=== PATIENT | female | born 1950 | race Caucasian/White ===

== ENCOUNTER → 2017-04-10 | Outpatient (CLI) | payer OTHER ==
[~2017-04-10] MED LIST: ANTIVERT25 MG PO
== END ==
LOC: RAD 14:29
DX: Z12.31 Encounter for screening mammogram for malignant neoplasm of breast (principal)

== ENCOUNTER → 2017-11-14 | Outpatient (CLI) | payer OTHER ==
[~2017-11-14] VITALS: Ht 167.6 cm; Wt 104.3 kg
[~2017-11-14] MED LIST changes: +IBUPROFEN 200200 M1 PO; +NORVASC10 MG PO
--- NOTE | ~2017-11-14 | PATH ---
[facility] [place] [address] PATHOLOGY RPT PROCEDURE Name: CORNELIOPABLO Room #: REG JOSE RAFAEL Carrillo#: [id number] Admission: 11/14/17 Date of : 54 Discharge: Report #: [id number] Path Case #: [id number] L[facility] Accession Number: [id number] . 01 Material submitted: . PART A: CECAL POLYP PART B: DESCENDING COLON POLYP PART C: RECAL POLYP X3 . 01 Clinical history: . Pre-OP DX: Screening Post-OP DX: Colon polyps . 02 Diagnosis: A. "Cecal polyp", biopsy: - Tubular adenoma; no high-grade dysplasia. . B. "Descending colon polyp", biopsy: - Tubular adenoma; no high-grade dysplasia. . C. "Rectal polyp x 3", biopsy: - Tubular adenoma; no high-grade dysplasia. - Hyperplastic polyp. (CLW:joe; 11/17/2017) QMS/11/17/2017 . 02 Electronically signed: . Chel Sheriff MD, Pathologist NPI- [id number] . 01 Gross description: . A. Received in formalin labeled "Pablo Mckinley cecal polyp," are multiple segments of jhaveri soft tissue measuring 1.5 x 0.9 x 0.4 cm in aggregate dimensions. The specimen is filtered and submitted entirely in cassette A1. . B. Received in formalin labeled "Pablo Mckinley, descending colon polyp," is a single segment of jhaveri soft tissue measuring 0.5 cm in maximum dimension. The specimen is entirely submitted in cassette B1. . C. Received in formalin labeled "Pablo Mckinley, rectal polyp x3," is a 1.1 x 0.6 x 0.8 cm polypoid piece of jhaveri soft tissue. The presumed margin is inked and the specimen is sectioned perpendicular to the margin and entirely submitted in cassette C1. Additionally received in the same container are 2 segments of jhaveri soft tissue measuring 0.5 x 0.3 x 0.2 cm in aggregate dimensions and ranging from 0.2 to 0.3 cm in maximum dimension. The specimen is submitted entirely [place] [id number] PATHOLOGY RPT PROCEDURE Name: PABLO MCKINLEY [facility] [id number] Admission: 11/14/17 Date of : 54 Discharge: Report #: [id number] Path Case #: [id number] (TSD; 11/14/2017) TOB/TOB . 02 Pathologist provided ICD-10: D12.0, D12.4, D12.8 . 02 CPT . 916074, 711464, 169612 Performed at: [address], [place] [id number] MD Raj Sood MD Phone: [phone] Performed at: [address] [id number] MD Amber Wallis MD Phone: [phone]
--- NOTE | ~2017-11-14 | P ---
[facility] [place] [place] [address] PROCEDURE REPORT Name: PABLO GRIMES Room #: REG [facility]#: [id number] Admission: 11/14/17 Attend Phys: Scott Raines Discharge: Date of : 54 Report #: [id number] THIS REPORT FOR: //name// CC: Scott Rodriguez Teetee Buchanan ACCOUNTS PAYABLE LEAD DATE OF SERVICE: 11/14/2017 PROCEDURE PERFORMED: Colonoscopy with polypectomies. HISTORY OF PRESENT ILLNESS: The patient is a 67-year-old female who presents today for routine screening colonoscopy. Denies any symptoms. No family history of colon cancer. DESCRIPTION OF PROCEDURE: The risks and benefits of the procedure were explained to the patient, those risks including but not limited to bleeding, perforation, the risk of sedation. She understood these risks and gave informed consent. Sedation was given using propofol per Anesthesia. Next, a digital rectal exam was initially performed and showed small external hemorrhoids, otherwise normal. Next, using a standard Olympus colonoscope, the scope was placed in the patient's anus and advanced under direct vision to the cecum. The overall prep was excellent. In the cecum, there was an 8 mm partially pedunculated polyp. This was removed by snare cautery, otherwise normal. The ileocecal valve was normal. Ascending and transverse colon were normal. In the descending colon, another 6 mm polyp was noted, also removed by snare cautery. Sigmoid colon was normal. In the rectum, there were 3 polyps, two 4 mm sessile polyps and 1 cm partially pedunculated polyp. All were removed by snare cautery. On retroflexion, no abnormalities were noted. The scope was then withdrawn and the procedure terminated. The patient tolerated the procedure well. IMPRESSION: 1. Multiple colonic polyps as described above. 2. External hemorrhoids. 3. Otherwise, normal colonoscopy. RECOMMENDATIONS: 1. Await biopsy results. 2. Repeat colonoscopy in 5 years. [facility] [address] [place] [address] PROCEDURE REPORT Name: PABLO GRIMES Ayaz Room #: [facility]#: [id number] Admission: 11/14/17 Attend Phys: Scott Raines Discharge: Date of : 54 Report #: [id number] Thank you for allowing me to participate in her care. By: [id number] Scott Rodriguez MD /jackie
== END | disposition home or self-care (01) ==
LOC: GI 06:57
DX: Z12.11 Encounter for screening for malignant neoplasm of colon (principal); D12.0 Benign neoplasm of cecum; D12.4 Benign neoplasm of descending colon; D12.8 Benign neoplasm of rectum; K63.5 Polyp of colon; K64.4 Residual hemorrhoidal skin tags; I10 Essential (primary) hypertension; Z98.890 Other specified postprocedural states; Z90.49 Acquired absence of other specified parts of digestive tract; Z90.710 Acquired absence of both cervix and uterus; Z79.899 Other long term (current) drug therapy
CPT/HCPCS: 62110; 62900

== ENCOUNTER → 2018-09-03 | Outpatient (CLI) | payer OTHER | LOC: RAD 14:48 | DX: Z12.31 Encounter for screening mammogram for malignant neoplasm of breast (principal) ==

== ENCOUNTER → 2019-10-26 | Outpatient (CLI) | payer OTHER | LOC: RAD 14:09 | PROVIDERS: ATTEND Nurse Practitioner | DX: Z12.31 Encounter for screening mammogram for malignant neoplasm of breast (principal) ==

== ENCOUNTER → 2019-11-24 | Outpatient (CLI) | payer OTHER ==
[~2019-11-24] MED LIST changes: +HYDROCHLOROTHIA25 M2 PO
== END ==
LOC: LAB 10:01
PROVIDERS: ATTEND Student in an Organized Health Care Education/Training Program
DX: Z01.812 Encounter for preprocedural laboratory examination (principal); Z11.59 Encounter for screening for other viral diseases

== ENCOUNTER 2019-11-29 06:28 | Day surgery (SDC) | payer OTHER ==
[2019-11-22 13:17] LABS: HEMATOCRIT 40.7 % (37.0-47.0); MCH 31.3 pg (26.0-34.0); MCHC 34.3 g/dL (28.0-37.0); MCV 91.2 fL (80.0-100.0); RBC 4.46 mil/uL (4.20-5.00); RDW 13.7 % (10.5-14.5)
--- NOTE | 2019-11-22 13:26 | EKG ---
[facility] [place] [address] [address] ELECTROCARDIOGRAM REPORT Name: PABLO GRIMES Room #: [facility]..#: [id number] Admission: Attend Phys: Ollie Childs MD Discharge: Date of : 54 Report #: [id number] THIS REPORT FOR: cc: Teetee Buchanan DNP, Mary E. DNP Couchonnal, Luis F. MD ~ THIS REPORT FOR: //name// [facility] Test Date: 2019-11-22 Test Time: 13:04:38 Pat Name: PABLO GRIMES Department: Room: Gender: Wildlife Conservationist: Ayaz DOBSON : 1950 Requested By: Ollie Childs Order Number: [id number] MD: Mike Dowling Measurements Intervals [place] Rate: 62 P: 43 VA: 144 QRS: 22 QRSD: 96 T: 3 QT: 400 QTc: 407 Interpretive Statements Sinus rhythm Compared to ECG 02/20/2015 10:49:44 No significant changes Electronically Signed On 11-22-2019 13:25:58 CDT by Mike Dowling [email or web address] <ELECTRONICALLY SIGNED> By: Mike Dowling MD 11/22/19 1325 1304 1304 Mike Dowling MD /[facility]
[2019-11-22 13:28] LABS: URINE BILIRUBIN NEGATIVE (Negative); URINE BLOOD NEGATIVE (Negative); URINE CLARITY CLEAR; URINE COLOR YELLOW; URINE GLUCOSE-RANDOM* NEGATIVE (Negative); URINE KETONES NEGATIVE (Negative); URINE NITRITE-REFLEX NEGATIVE (Negative); URINE PROTEIN (DIPSTICK) NEGATIVE (Negative); URINE SPECIFIC GRAVITY 1.015 (1.005-1.035); URINE UROBILINOGEN 0.2 E.U./dl (0.2-1.0)
[2019-11-22 13:31] LABS: URINE LEUKOCYTES-REFLEX 1+ (Negative)
[2019-11-22 13:38] LABS: ALBUMIN 3.9 g/dL (3.4-5.0); CALCIUM 9.3 mg/dL (8.5-10.1); CREATININE 0.7 mg/dL (0.6-1.0); POTASSIUM 3.2 mmol/L (3.5-5.1)
[2019-11-22 13:41] LABS: SQUAMOUS 4-10 Moderate /LPF (0-3); URINE RBC None Seen /HPF (0-2); URINE WBC-REFLEX 0-5 Rare /HPF (0-5)
[2019-11-22 13:42] LABS: CASTS None Seen /LPF (None Seen); CRYSTALS None Seen /LPF (None Seen)
[2019-11-22 13:50] LABS: PROTIME 9.7 Seconds (9.3-11.4)
[2019-11-29] VITALS (7 sets, daily range): BP systolic 117–133; BP diastolic 68–76
[~2019-11-29] VITALS: Ht 170.2 cm; Wt 103.9 kg
--- NOTE | 2019-11-29 15:51 | NUR ---
PATIENT ARRIVED TO UNIT APPROX 12:51. PT AOX4. POLAR PACK IN PLACE. DENIES PAIN. REPORTS SOME PRESSURE TO LEFT KNEE. PT WORKED WITH PT. PT STATING THAT SHE IS GOING HOME TODAY. IVF IN PLACE. VSS. FALL PRECAUTIONS IN PLACE.
--- NOTE | 2019-11-29 16:41 | NUR ---
ASSESSMENT: CM REVIEWED CHART AND MET WITH PATIENT AT THE BEDSIDE. PT IS A TOTAL KNEE. PT REPORTS LIVING IN A HOUSE ALONE. PT REPORTS 1-2 STEPS TO ENTER WITH A POST SHE CAN HOLD ON TO. PT REPORTS ONCE INSIDE HER NEEDS ARE ON ONE LEVEL EXCEPT LAUNDRY IS IN THE BASEMENT. PT REPORTS HAVING ENOUGH CLOTHES WHERE SHE WONT HAVE TO DO LAUNDRY FOR A WHILE. PT REPORTS ABOUT 14 STEPS WITH HANDRAILS TO THE BASEMENT. PT REPORTS NEVER HAVING HH. PT STATES SHE HAS A WALKER AND A CANE AT HOME. PT REPORTS SHE HAS OUTPATIENT THERAPY SCHEDULED AT [facility] IN [place]. PT REPORTS WANTING TO GO HOME. PT REPORTS NO FURTHER NEEDS FROM CM PRIOR TO DISCHARGE.
--- NOTE | 2019-11-30 03:42 | NUR ---
PT OBSERVED SITTING UP IN THE RECLINER IN HER ROOM AT START OF SHIFT.PT DENIED PAIN STATED THAT SHE FEEL JUST PRESSURE TO HER KNEE.PT UP WITH ASSIST X1/GAIT BELT AND WALKER TO THE BATHROOM,GOOD ENDURANCE NOTED.SCD AND RADHA HOSE IN PLACE.DRSG C/D/I WITH POLAR PACK.PT VOICED CONCERN ABOUT THERAPY SET UP AT DC,SHE WAS INFORMED THAT THE CASE MGT WILL LOOK INTO IT IN THE AM.PT PROGRESSING WELL TOWARDS DC GOALS.FALL PRECAUTIONS IN PLACE,CALL LIGHT WITHIN REACH.
[2019-11-30 05:59] LABS: HEMATOCRIT 34.1 % (37.0-47.0); HEMOGLOBIN 11.5 gm/dL (12.0-15.0); MCH 30.9 pg (26.0-34.0); MCHC 33.6 g/dL (28.0-37.0); RBC 3.7 mil/uL (4.20-5.00); RDW 14.1 % (10.5-14.5); WBC 12.7 thou/uL (4.0-11.0)
[2019-11-30 08:03] VITALS: BP 128/68
[2019-11-30 11:30] VITALS: BP 128/68
--- NOTE | 2019-11-30 13:15 | NUR ---
PT ASSESSED AT START OF SHIFT. PT PROGRESSING WELL W/ THERAPY. MINIMAL PAIN -MEDS HELPING. PLANNING ON THERAPY OUTPT AT [facility] NEAR HER HOME. DC'D PER W/C TO HOME W/ DAUGHTER THERE TO HELP.
--- NOTE | 2019-11-30 16:27 | NUR ---
CM MET WITH PATIENT SHE STATES HER OUTPATIENT THERAPY HAS NOT HEARD BACK FROM HER INSURANCE FAR APPROVING THEM FOR OUTPATIENT REHAB. CM ATTEMPTED TO ASSIST PATIENT AND CALLED THE NUMBER ON HER BACK OF INSURANCE CARD [phone] IN ATTEMPTS TO GET MORE INFO. THEY STATE THAT PT NEEDS TO GO TO A PRIME FACILITY TO BE IN TIER ONE. PT REPORTS SHE WANTS TO GO SOMEWHERE CLOSE TO HER HOME THAT HER DAUGHTER GOES TO ([facility]) WHICH IS CONSIDERED TIER 2 AND SHE WILL HAVE A COPAY. PT REPORTS SHE KNOWS AND IS AGREEABLE WITH THIS BUT STATES THAT [facility] IS WAITING TO HEAR BACK FROM INSURANCE. CM SPOKE WITH [facility] WHO REPORTS THEY ARE AWAITING CALL BACK FROM INSURANCE AND INSURANCE STATES SOMETIMES IT TAKES 5-10 DAYS TO APPROVE. CM PROVIDED PATIENT AND [facility] WITH THE NUMBER TO CONSTACT THE INSURANCE COMPANY AND THEIR FAX.
--- NOTE | 2019-12-03 09:08 | O ---
[facility] [place] [address] OPERATIVE REPORT Name: PABLO GRIMES Room #: [facility]#: [id number] Admission: 11/29/19 Attend Phys: Ollie Childs MD Discharge: 11/30/19 Date of : 54 Report #: [id number] THIS REPORT FOR: cc: Teetee Buchanan DNP, Mary E. DNP Abraham, Scott M. MD ~ CC: Veronica Childs DATE OF SERVICE: 11/29/2019 PREOPERATIVE DIAGNOSIS: Left knee osteoarthritis. POSTOPERATIVE DIAGNOSIS: Left knee osteoarthritis. PROCEDURE: Left total knee arthroplasty using Navio robotic assistance. SURGEON: Ollie Childs MD [employer]: Sharron Barajas PA-C. INDICATIONS FOR [employer]: Throughout the case, extensive retraction and manipulation of knee was required. This was afforded to me by my child care center assistant director. ANESTHESIA: LMA with an adductor canal block. IMPLANTS: Include size 6 Journey II BCS cobalt chrome femur, a size 5 tibia, size 11 constrained polyethylene and size 32 patella. TOURNIQUET TIME: 57 minutes. ESTIMATED BLOOD LOSS: 25 mL. COMPLICATIONS: None. SPECIMENS: None. CONDITION UPON LEAVING THE OPERATING ROOM: Stable. INDICATIONS FOR PROCEDURE: The patient is a 69-year-old female with severe left knee osteoarthritis who failed conservative measures for this and after discussion with her, she elected for left total knee arthroplasty. DESCRIPTION OF PROCEDURE: Risks, benefits, alternatives, complications were discussed in detail with the patient including but not limited to risk of [facility] [address] [place] [address] OPERATIVE REPORT Name: PABLO GRIMES Room #: [facility]P [facility]..#: [id number] Admission: 11/29/19 Attend Phys: Ollie Childs MD Discharge: 11/30/19 Date of : 54 Report #: [id number] anesthesia, risk of damage to nerves, arteries, blood vessels, risk for infection, bleeding, risk for continued knee pain, need for reoperation. Informed consent was obtained from the patient. Left knee was prepped with marked in the preoperative holding area. Adductor canal block was placed by Anesthesia. IV Ancef was given for preoperative antibiotics. She was brought to the operating room and placed in the supine position on the operating room table. LMA anesthesia was induced without complication. Tourniquet was placed on the left thigh. Left lower extremity was prepped and draped in normal sterile fashion. Timeout was performed properly identifying the patient and procedure as well as the instrumentation and implants. All in the operating room were in agreement. Left lower extremity was exsanguinated. Tourniquet inflated. Tourniquet time was 57 minutes. Standard midline approach to knee was made with 10 blade through the skin. Dissection was taken down sharply to the fascia and flaps were developed medially and laterally. Fresh 10 blade was used to make a medial parapatellar arthrotomy and the knee was inspected. There was severe tricompartmental osteoarthritis. ACL and PCL were removed sharply. Reference pins were placed in the femur and the tibia and the knee was digitally mapped using the [employer] robotic system and sized the size 6 femur, size 5 tibia and a size 10 spacer. After acceptance of the intraoperative plan, the distal femoral cut was made with Navio bur. The distal femoral cutting block was pinned in place and distal femoral cuts were made. Attention was turned to the tibia. Remainder of the menisci were removed with Bovie cautery. Tibial resection guide was pinned in place using the Navio for placement and tibial resection was made. Flexion and extension gaps were then checked and found to have good balance in flexion and extension both medially and laterally. The tibia was sized, found to be a size 5. A size 5 tibial trial was placed, pinned and punched. A size 6 femoral trial was placed and box cut was made. This was trialed with a size 10 and then a size 11 polyethylene demonstrated good balance laterally throughout range of motion. It was about 4 millimeter of laxity medially and we felt we could make up for this with the final implant. A 9 mm was then resected from the posterior surface of the patella and a size 32 patellar trial button was placed. Knee was taken through range of motion, found to be stable, found to have good patellar tracking. Trial components were removed. Bony ends were thoroughly irrigated with normal saline. A final size 5 tibia, size 6 Journey II BCS cobalt chrome femur and a size 32 patella were cemented in place using standard cementation techniques. While the cement cured, a periarticular injection consisting of morphine, ropivacaine, epinephrine and Toradol was placed around the knee joint capsule. After the cement cured, tourniquet was deflated. Hemostasis was obtained with Bovie cautery. Final size 11 constrained polyethylene was placed. A gram of vancomycin was placed deep in the joint. Fascia was closed with 0 Vicryl, skin was closed with 2-0 Vicryl, skin staple and a JANINA dressing was applied. The [address] [address] OPERATIVE REPORT Name: PABLO GRIMES Room #: DEP [facility] Lorena#: [id number] Admission: 11/29/19 Attend Phys: Ollie Childs MD Discharge: 11/30/19 Date of : 54 Report #: [id number] patient tolerated this procedure well and went to recovery room under care of anesthesia postoperatively. <ELECTRONICALLY SIGNED> By: Ollie Childs MD 12/03/19 0908 1021 1036 Ollie Childs MD /nt
== END 2019-11-30 13:00 | disposition home or self-care (01) ==
LOC: OR 06:28 → 4S 06:28 → TBA 06:29 → OR 10:19 → 4S 12:25 → OR 11-30 13:00
PROVIDERS: ATTEND Orthopaedic Surgery
DX: M17.12 Unilateral primary osteoarthritis, left knee (principal); M25.562 Pain in left knee; I10 Essential (primary) hypertension; Z98.890 Other specified postprocedural states; Z79.899 Other long term (current) drug therapy; Z90.49 Acquired absence of other specified parts of digestive tract; Z90.710 Acquired absence of both cervix and uterus
CPT/HCPCS: 50010; 50101; 50415; 50954; 51130; 51225; 51320; 51412; 52001; 53078; 54118; 56527; 56528; 57095; 57103; 57104; 57110; 57127; 57180; 57952; 62110; 62900; 64039; 70005

== ENCOUNTER → 2020-02-18 | Outpatient (CLI) | payer OTHER ==
[2020-02-18 16:08] LABS: ABSOLUTE NEUTROPHILS 4.4 thou/uL (1.4-8.2); BASOPHILS 0.6 % (0.0-2.0); EOSINOPHILS 1.2 % (0.0-3.0); HEMATOCRIT 39.9 % (37.0-47.0); HEMOGLOBIN 13.4 gm/dL (12.0-15.0); LYMPHOCYTES 26.6 % (24.0-44.0); MCH 29.4 pg (26.0-34.0); MCHC 33.6 g/dL (28.0-37.0); MCV 87.6 fL (80.0-100.0); MONOCYTES 11.2 % (1.0-8.0); PLATELET COUNT 252 thou/uL (150-400); POLYS 60.4 % (36.0-66.0); RBC 4.55 mil/uL (4.20-5.00); RDW 14.9 % (10.5-14.5); WBC 7.4 thou/uL (4.0-11.0)
[2020-02-18 16:26] LABS: ALBUMIN 3.9 g/dL (3.4-5.0); ANION GAP 10 mmol/L (7-16); BUN 16 mg/dL (7-18); CALCIUM 9.6 mg/dL (8.5-10.1); CHLORIDE 100 mmol/L (98-107); CO2 29 mmol/L (21-32); CREATININE 0.7 mg/dL (0.6-1.0); GLUCOSE 118 mg/dL (74-106); SGOT 16 U/L (15-37); SGPT 20 U/L (30-65); SODIUM 139 mmol/L (136-145); TOTAL BILIRUBIN 0.6 mg/dL (0.2-1.0); TOTAL PROTEIN 7.9 g/dL (6.4-8.2)
[2020-02-18 17:45] LABS: CHOLESTEROL 177 mg/dL (<200); HDL CHOLESTEROL 45 mg/dL (>40); LDL CHOLESTEROL 110 mg/dL (<100); TC:HDL 3.9 Ratio (Not establshd); TRIGLYCERIDE 111 mg/dL (<150); VLDL 22 mg/dL (<40)
[2020-02-19 05:07] LABS: GLYCOHEMOGLOBIN (HGB A1C) 5.5 % (4.8-5.6)
== END ==
LOC: LABMALL 15:25
PROVIDERS: ATTEND Nurse Practitioner
DX: I10 Essential (primary) hypertension (principal); R73.9 Hyperglycemia, unspecified

== ENCOUNTER → 2020-03-09 | Outpatient (CLI) | payer OTHER ==
[2020-03-09 09:45] LABS: CALCIUM 9.6 mg/dL (8.5-10.1); CREATININE 0.8 mg/dL (0.6-1.0); POTASSIUM 3.7 mmol/L (3.5-5.1); TOTAL BILIRUBIN 0.7 mg/dL (0.2-1.0); TOTAL PROTEIN 7.3 g/dL (6.4-8.2)
== END ==
LOC: LAB 08:54
PROVIDERS: ATTEND Nurse Practitioner
DX: E87.6 Hypokalemia (principal)

== ENCOUNTER → 2020-03-27 | Outpatient (CLI) | payer OTHER | LOC: LAB 12:37 | PROVIDERS: ATTEND Nurse Practitioner | DX: U07.1 COVID-19 (principal) ==

== ENCOUNTER → 2020-12-12 | Outpatient (CLI) | payer OTHER | LOC: BC 11-27 10:02 | PROVIDERS: ATTEND Nurse Practitioner | DX: Z12.31 Encounter for screening mammogram for malignant neoplasm of breast (principal) ==

== ENCOUNTER → 2021-04-30 | Outpatient (CLI) | payer OTHER ==
[~2021-04-30] MED LIST changes: +HYDROCHLOROTHIA25 M1 PO; -HYDROCHLOROTHIA25 M2 PO; +HYDROCODON-ACE1 EAC7 PO; +KEFLEX250 MG PO; +MS CONTIN15 MG PO; +TRI-BUFFERED A325 M1 PO
[2021-04-30 14:03] LABS: HEMATOCRIT 41.4 % (37.0-47.0); HEMOGLOBIN 13.9 gm/dL (12.0-15.0); MCH 30.7 pg (26.0-34.0); MCHC 33.6 g/dL (28.0-37.0); MCV 91.2 fL (80.0-100.0); RBC 4.54 mil/uL (4.20-5.00); RDW 13.6 % (10.5-14.5); WBC 6.2 thou/uL (4.0-11.0)
[2021-04-30 14:08] LABS: CALCIUM 9.5 mg/dL (8.5-10.1); CREATININE 0.7 mg/dL (0.6-1.0); INR 0.97; POTASSIUM 3.4 mmol/L (3.5-5.1); PROTIME 10.6 Seconds (10.5-12.1)
[2021-04-30 14:33] LABS: URINE COLOR YELLOW
[2021-04-30 14:34] LABS: URINE CLARITY CLEAR; URINE SPECIFIC GRAVITY 1.025 (1.005-1.035)
[2021-04-30 14:35] LABS: URINE GLUCOSE-RANDOM* NEGATIVE (Negative); URINE KETONES NEGATIVE (Negative); URINE NITRITE-REFLEX NEGATIVE (Negative); URINE PROTEIN (DIPSTICK) NEGATIVE (Negative); URINE UROBILINOGEN 0.2 E.U./dl (0.2-1.0)
[2021-04-30 14:37] LABS: URINE LEUKOCYTES-REFLEX 1+ (Negative)
[2021-04-30 14:38] LABS: SQUAMOUS 4-10 Moderate /LPF (0-3)
[2021-04-30 14:40] LABS: TRANSITIONAL EPITHEL CELL 0-3 Few /LPF (None Seen); URINE WBC-REFLEX 6-15 Few /HPF (0-5)
[2021-04-30 14:43] LABS: URINE BILIRUBIN NEGATIVE (Negative)
[2021-04-30 14:44] LABS: BACTERIA-REFLEX 1-9 Few /HPF (None Seen); CASTS None Seen /LPF (None Seen); CRYSTALS None Seen /LPF (None Seen)
[2021-04-30 14:47] LABS: URINE BLOOD 2+ (Negative)
--- NOTE | 2021-04-30 15:34 | EKG ---
[place] [address] [facility] [place] [address] ELECTROCARDIOGRAM REPORT Name: PABLO GRIMES Room #: [facility]#: [id number] Admission: 04/30/21 Attend Phys: Ollie Childs MD Discharge: Date of : 54 Report #: [id number] [facility] Test Date: 2021-04-30 Test Time: 13:20:16 Pat Name: PABLO GRIMES Department: Room: Gender: F Core Measures Abstractor: Ayaz DOBSON : 1950 Requested By: Ollie Childs Order Number: [id number] : Rhys Dominique Measurements Intervals [place] Rate: 72 P: 44 MN: 60 QRS: 33 QRSD: 99 T: 7 QT: 406 QTc: 445 Interpretive Statements Sinus rhythm Short MN interval Compared to ECG 11/22/2019 13:04:38 Short MN interval now present Electronically Signed On 04-30-2021 15:33:56 STRATEGIC COMMUNICATIONS SPECIALIST by Rhys Dominique [email or web address] <ELECTRONICALLY SIGNED> By: Rhys Dominique MD, [facility] 04/30/21 1533 1320 1320 Rhys Dominique MD, FACC /EPI
== END ==
LOC: PAC 09:47
PROVIDERS: ATTEND Orthopaedic Surgery
DX: M17.11 Unilateral primary osteoarthritis, right knee (principal)

== ENCOUNTER → 2021-05-03 | Day surgery (SDC) | payer OTHER ==
[~2021-05-03] VITALS: Ht 170.2 cm; Wt 105.2 kg
--- NOTE | ~2021-05-03 | O ---
[facility] [place] [address] [place] [address] OPERATIVE REPORT Name: PABLO GRIMES Room #: REG [facility]..#: [id number] Admission: 05/03/21 Attend Phys: Ollie Childs MD Discharge: Date of : 54 Report #: [id number] THIS REPORT FOR: cc: Teetee Buchanan DNP, Mary E. DNP Abraham, Scott M. MD ~ DATE OF SERVICE: 05/03/2021 PREOPERATIVE DIAGNOSIS: Right knee osteoarthritis. POSTOPERATIVE DIAGNOSIS: Right knee osteoarthritis. PROCEDURE: Right total knee arthroplasty using Navio robotic assistance. SURGEON: Ollie Childs MD ANESTHESIA: LMA with adductor canal block. IMPLANTS: Tran and Nephew size 5 Journey II BCS cobalt chrome femur, size 4 tibia, size 10 constrained polyethylene and size 32 patella. TOURNIQUET TIME: 50 minutes. ESTIMATED BLOOD LOSS: 25 mL. COMPLICATIONS: None. SPECIMENS: None. CONDITION UPON LEAVING THE OR: Stable. INDICATIONS FOR PROCEDURE: The patient is a 71-year-old female with right knee osteoarthritis. She has failed conservative measures for this, and after discussion with her, she elected for right total knee arthroplasty. DESCRIPTION OF PROCEDURE: The risks, benefits, alternatives and complications were discussed in detail with the patient including but not limited to risk of anesthesia, risk of damage to nerves, arteries, blood vessels, risk for infection, bleeding, risk for continued knee pain and need for reoperation. Informed consent was obtained from the patient. Right knee was appropriately marked in the preoperative holding area. IV Ancef was given for preoperative antibiotics. She was brought to the operating room and placed in a supine position on the operating table. LMA anesthesia was induced without complication. A tourniquet was placed on the right thigh. Right lower extremity was prepped and draped in a normal sterile fashion. A timeout was performed properly identifying the patient and procedure as well as the [address] [address] OPERATIVE REPORT Name: PABLO GRIMES Room #: REG [facility].#: [id number] Admission: 05/03/21 Attend Phys: Ollie Childs MD Discharge: Date of : 54 Report #: [id number] instrumentation and implants. All in the operating room was in agreement. Right lower extremity was exsanguinated and tourniquet was inflated. Tourniquet time was 50 minutes. A standard midline approach to the knee was made with a 10 blade through the skin. Dissection was taken down sharply to the fascia and deep flaps were developed medially and laterally. A fresh 10 blade was used to make a medial parapatellar arthrotomy and the knee was inspected. There was severe tricompartmental osteoarthritis. ACL and PCL were removed sharply. Reference pins were placed in the femur and the tibia. The knee was then digitally mapped using the [employer] robotic system. Intraoperative plan was made and we sized the size 5 femur, size 4 tibia and a 10 spacer. After acceptance of the intraoperative plan, a distal femoral cut was made with Navio bur. Distal femoral cutting block was pinned in place and chamfer cuts were made. Attention was turned to the tibia. Remainder of the menisci removed with Bovie cautery. Tibial resection guide was pinned in place using Navio for placement and tibial resection was made. Flexion and extension gaps were checked and found to have good balance in flexion and extension both medially and laterally. Tibia sized, found to be a size 4. Size 4 tibial trial was placed, pinned and punch. A size 5 femoral trial was placed and box cut was made. This was then trialed with a size 10 polyethylene. Size 10 polyethylene demonstrated 1-2 mm of laxity medially and laterally in mid-flexion. Medially, her knee did open up to about 3 mm. It was felt we can make up for this with a constrained implant. Then, 9 mm of bone was resected from the posterior surface of the patella and a size 32 patellar trial button was placed. The knee was taken through range of motion, found to be stable and found to have good patellar tracking. Trial components were removed. Bone ends were thoroughly irrigated with normal saline. A final size 4 tibia, size 5 Journey II BCS cobalt chrome femur and a size 32 patella were cemented in place using standard cementation techniques. While the cement cured, a periarticular injection consisting of morphine, ropivacaine, epinephrine and Toradol was placed around the knee joint capsule. After the cement cured, the tourniquet was deflated. Hemostasis was obtained with Bovie cautery. A final size 10 constrained polyethylene was placed. A gram of vancomycin was placed deep in the joint. Fascia was closed with 0 Vicryl. Skin was closed with 2-0 Vicryl, and skin staple and a JANINA dressing was applied. The patient tolerated this procedure well and went to recovery room under care of anesthesia postoperatively. By: 1125 1153 Ollie Childs MD /nt
[2021-05-03 09:00] VITALS: BP 151/74
[2021-05-03 15:21] VITALS: BP 151/74
== END | disposition home or self-care (01) ==
LOC: OR 07:06
PROVIDERS: ATTEND Orthopaedic Surgery
DX: M17.11 Unilateral primary osteoarthritis, right knee (principal); M25.561 Pain in right knee; I10 Essential (primary) hypertension; Z20.822 Contact with and (suspected) exposure to COVID-19; Z98.890 Other specified postprocedural states; Z79.899 Other long term (current) drug therapy; Z90.710 Acquired absence of both cervix and uterus; Z90.49 Acquired absence of other specified parts of digestive tract; Z96.652 Presence of left artificial knee joint
CPT/HCPCS: 50010; 50101; 50415; 50954; 51130; 51225; 51320; 52001; 52282; 53000; 53078; 56527; 56528; 57095; 57103; 57110; 57127; 58239; 62110; 62900; 64042; 70005